=== PATIENT | female | born 1955 | race Two or more races ===

== ENCOUNTER 2021-06-11 16:43 | Emergency (ER) | payer MEDICAID ==
[~2021-06-11] VITALS: Ht 160 cm; Wt 65.8 kg
--- NOTE | 2021-06-11 17:02 | NUR ---
PT BIB SON C/O L SIDED CHEST WALL/RIB AREA PAIN S/P FALL 8 DAYS AGO WHILE STANDING ON A BRICK FIXING SOME LIGHTS. PT DENIES HITTING HER HEAD. STATES PAIN PROGRESSIVELY GETTING WORST. PT IS AAOX3 VITALS STABLE. AWAITING MD FLORES.
--- NOTE | 2021-06-11 17:17 | NUR ---
SHIV BARBER AT BEDSIDE FOR EVAL.
[2021-06-11] MEDS ORDERED: TRAMADOL HCL 50 MG TABLET PO ONE (17:30)
[2021-06-11] MEDS ORDERED: TRAMADOL HCL 50 MG TABLET ONE ×2 (18:02→18:33)
--- NOTE | 2021-06-11 18:43 | NUR ---
maría tan at bedside
[2021-06-11] MEDS ORDERED: AZIT250T13 PO (18:46)
[2021-06-11] MEDS ORDERED: ACET-2605 PO (18:46)
[2021-06-11] MEDS ORDERED: TRAM50TA2 PO (18:46)
--- NOTE | 2021-06-11 19:11 | NUR ---
REPORT GIVEN TO NANDA FOR MILE
--- NOTE | 2021-06-11 19:46 | NUR ---
COVID RAPID NEGATIVE
--- NOTE | 2021-06-11 20:00 | NUR ---
PT LEFT AMBULATING IN STABLE CONDITION.
--- NOTE | 2021-06-11 20:01 | NUR ---
DISCHARGE GIVEN WITH RX.
[2021-06-11 20:30] VITALS: BP 154/71
== END 2021-06-11 20:02 | disposition home or self-care (01) ==
LOC: ER 18:00
DX: J18.9 Pneumonia, unspecified organism (principal); R07.81 Pleurodynia; Z91.81 History of falling; E11.9 Type 2 diabetes mellitus without complications; Z20.822 Contact with and (suspected) exposure to COVID-19; R03.0 Elevated blood-pressure reading, without diagnosis of hypertension
CPT/HCPCS: 71100; 87426; 99284; C9803